=== PATIENT | male | born 1990 | race American Indian/Alaskan Native ===

== ENCOUNTER 2016-07-07 07:57 | Emergency (ER) | payer OTHER ==
[2016-07-07 08:01] VITALS: BP 132/77; TEMP 98.2
[2016-07-07 08:02] VITALS: BMI 27.1
[2016-07-07 08:41] VITALS: RESP 24; O2SAT 96
[2016-07-07 08:43] VITALS: PULSE 106
--- NOTE | 2016-07-07 09:05 | ED PDOC ---
HPI: General Adult Time Seen by Provider: 07/07/16 08:42 Chief Complaint (Nursing): Shortness Of Breath Chief Complaint (Provider): Shortness Of Breath History Per: Patient History/Exam Limitations: no limitations Onset/Duration Of Symptoms: Days (x2 days) Additional Complaint(s): Patient is a 26 y/o male with a past medical history of asthma who presents to the emergency department with a complaint of shortness of breath, cough, sputum (yellow/greenish) and body aches x2 days. Denies fever. No other complaints at this time. PMD: None Past Medical History Reviewed: Historical Data, Nursing Documentation, Vital Signs Vital Signs: Last Vital Signs Temp 98.2 F 07/07/16 08:01 Pulse 106 H 07/07/16 08:42 Resp 24 07/07/16 08:42 BP 132/77 07/07/16 08:01 Pulse Ox 96 07/10/16 16:42 - Medical History PMH: Anxiety, Asthma, Bipolar Disorder - Surgical History Surgical History: No Surg Hx - Family History Family History: States: No Known Family Hx - Social History Current smoker - smoking cessation education provided: Yes Alcohol: Social Drugs: Cannabis - Immunization History Hx Tetanus Toxoid Vaccination: No Hx Influenza Vaccination: No Hx Pneumococcal Vaccination: No - Home Medications Home Medications: Ambulatory Orders Medication Instructions Recorded Albuterol HFA [Ventolin HFA 90 1 puff IH Q4 #1 puff 05/26/16 mcg/actuation (8 g)] Benzonatate [Tessalon Perles] 100 mg PO TID #30 sgl 05/26/16 Prednisone 50 mg PO DAILY #5 tablet 05/26/16 Seroquel 05/26/16 Albuterol HFA [Ventolin HFA 90 2 puff IH Q4H #1 puff 07/07/16 mcg/actuation (8 g)] Azithromycin [Zithromax] 250 mg PO DAILY #6 tab 07/07/16 predniSONE [predniSONE Tab] 10 mg PO TID #15 tab 07/07/16 - Allergies Allergies/Adverse Reactions: Allergies Allergy/AdvReac Type Severity Reaction Status Date / Time No Known Allergies Allergy Unverified 05/26/16 02:55 Review of Systems ROS Statement: Except As Marked, All Systems Reviewed And Found Negative Constitutional: Positive for: Other (Body aches). Negative for: Fever Respiratory: Positive for: Cough, Shortness of Breath, Sputum (yellow/greenish) Physical Exam - Reviewed Nursing Documentation Reviewed: Yes Vital Signs Reviewed: Yes - Physical Exam Appears: Positive for: Well, Non-toxic, No Acute Distress Head Exam: Positive for: ATRAUMATIC, NORMOCEPHALIC Skin: Positive for: Normal Color, Warm, Dry. Negative for: Rash Eye Exam: Positive for: Normal appearance ENT: Positive for: Normal ENT Inspection. Negative for: Pharyngeal Erythema Neck: Positive for: Normal Cardiovascular/Chest: Positive for: Regular Rate, Rhythm. Negative for: Murmur Respiratory: Positive for: Wheezing (Expiratory wheezing bilaterally). Negative for: Normal Breath Sounds, Accessory Muscle Use, Respiratory Distress Gastrointestinal/Abdominal: Positive for: Normal Exam Back: Positive for: Normal Inspection Extremity: Positive for: Normal ROM Neurologic/Psych: Positive for: Alert, Oriented. Negative for: Motor/Sensory Deficits - Laboratory Results Result Diagrams: 07/07/16 08:55 07/07/16 08:55 - ECG O2 Sat by Pulse Oximetry: 96 (RA) Pulse Ox Interpretation: Normal Medical Decision Making Medical Decision Making: Time: 8:42 Initial impression: Bronchitis; asthma exacerbation Initial plan: --COMP Metabolic Panel --CBC w/ differential --Chest Two Views (PA/LAT) (RAD) --Blood Culture Stat --IV Insertion --Peak Flow BID --Influenza A B Stat --Revaluation Scribe Attestation: Documented by Sofya Huizar, acting as a scribe for Jose Cuevas MD. Provider Scribe Attestation: All medical record entries made by the Scribe were at my direction and personally dictated by me. I have reviewed the chart and agree that the record accurately reflects my personal performance of the history, physical exam, medical decision making, and the department course for this patient. I have also personally directed, reviewed, and agree with the discharge instructions and disposition. Disposition - Clinical Impression Clinical Impression: Bronchitis - Disposition Referrals: [facility] [Outside] Provider TBD, [Primary Care Provider] - Disposition Time: 11:15 Condition: STABLE Prescriptions: Albuterol HFA [Ventolin HFA 90 mcg/actuation (8 g)] 2 puff IH Q4H #1 puff Azithromycin [Zithromax] 250 mg PO DAILY #6 tab predniSONE [predniSONE Tab] 10 mg PO TID #15 tab Instructions: Acute Bronchitis (ED) Physician Patient Turnover - . Patient Signed Over To: Ayo Carlton Handoff Comments: 10:00 AM - Pt handed off to Dr. Carlton. If wheezing improves after nebs and if pt is feeling better, then d/c home.
[2016-07-07] MEDS ORDERED: Albuterol-Ipratrop 3 mg / 0.5 (3 ml) UD INH STA ×2 (09:14→09:23)
[2016-07-07] MEDS ORDERED: Albuterol-Ipratrop 3 mg / 0.5 (3 ml) UD ONE (09:38)
[2016-07-07 09:58] LABS: BASO % 0.3 % (0.0-2.0); EOS # 0.2 K/uL (0.0-0.7); EOS % 1.4 % (0.0-4.0); HEMATOCRIT 43.1 % (35.0-51.0); LYMPH # 1.2 K/uL (1.0-4.3); LYMPH % 10.6 % (20.0-40.0); MEAN CELL VOLUME 91.2 fl (80.0-94.0); MEAN CORPUSCULAR HGB CONC 32.9 g/dL (33.0-37.0); MONO # 1.2 K/uL (0.0-0.8); MONO % 10.8 % (0.0-10.0); NEUT # 8.9 K/uL (1.8-7.0); NEUT % 76.9 % (50.0-75.0); RED CELL DISTRIBUTION WIDTH 13.7 % (11.5-14.5); WHITE BLOOD COUNT 11.5 K/uL (4.8-10.8)
--- NOTE | 2016-07-07 10:01 | ED PDOC ---
- Laboratory Results Result Diagrams: 07/07/16 08:55 07/07/16 08:55 - ECG O2 Sat by Pulse Oximetry: 96 (RA) Pulse Ox Interpretation: Normal Medical Decision Making Medical Decision Making: Time: 10:00 --Patient pending Chest X-ray, reassessment, and deposition. Disposition - Clinical Impression Clinical Impression: Bronchitis - POA Present On Arrival: None - Disposition Referrals: Provider TBD, [Primary Care Provider] - [facility] [Outside] Disposition: Routine/Home Disposition Time: 10:48 Condition: FAIR Prescriptions: Albuterol HFA [Ventolin HFA 90 mcg/actuation (8 g)] 2 puff IH Q4H #1 puff Azithromycin [Zithromax] 250 mg PO DAILY #6 tab predniSONE [predniSONE Tab] 10 mg PO TID #15 tab Instructions: Acute Bronchitis (ED)
[2016-07-07 10:06] LABS: ALB/GLOB RATIO 1.2 (1.0-2.1); ALKALINE PHOSPHATASE 57 U/L (38-126); ALT/SGPT 66 U/L (21-72); AST/SGOT 53 U/L (17-59); BILIRUBIN,TOTAL 0.8 mg/dl (0.2-1.3); BLOOD UREA NITROGEN 13 mg/dl (9-20); CALCIUM 8.8 mg/dL (8.4-10.2); CARBON DIOXIDE 26 mmol/L (22-30); CHLORIDE 102 mmol/L (98-107); GFR AFRICAN-AMERICAN > 60; GLUCOSE,RANDOM 87 mg/dL (75-110); POTASSIUM 4.1 MMOL/L (3.6-5.0); SODIUM 143 mmol/l (132-148); TOTAL PROTEIN 7.5 G/DL (6.3-8.2)
--- NOTE | 2016-07-07 10:37 | RAD ---
HISTORY: Cough and shortness of breath COMPARISON: No prior. TECHNIQUE: Chest PA and lateral FINDINGS: LUNGS: The lungs are well inflated. There is linear atelectasis/ scarring in the lungs. There is no focal consolidation. PLEURA: No significant pleural effusion identified. No pneumothorax apparent. CARDIOVASCULAR: Normal. OSSEOUS STRUCTURES: No significant abnormalities. VISUALIZED UPPER ABDOMEN: Normal. OTHER FINDINGS: None. IMPRESSION: No active pulmonary disease.
== END 2016-07-07 11:20 | disposition home or self-care (01) ==
LOC: H.ER 07:57 → SUPCPDRO 07:57 → H.ER 11:20
DX: J40 Bronchitis, not specified as acute or chronic (principal); F17.200 Nicotine dependence, unspecified, uncomplicated; F31.9 Bipolar disorder, unspecified; F41.9 Anxiety disorder, unspecified; R06.02 Shortness of breath; R05 Cough

== ENCOUNTER 2016-07-13 19:38 | Emergency (ER) | payer OTHER ==
[2016-07-13 19:38] VITALS: BMI 27.1
[2016-07-13] MEDS ORDERED: Albuterol-Ipratrop 3 mg / 0.5 (3 ml) UD IH STA (20:19)
[2016-07-13] MEDS ORDERED: Sodium Chloride 0.9% 1,000 ML IV STA ×2 (20:20→22:40)
--- NOTE | 2016-07-13 20:23 | ED PDOC ---
HPI: CCC, URI, Sore Throat Time Seen by Provider: 07/13/16 20:08 Chief Complaint (Nursing): Flu-like Symptoms Chief Complaint (Provider): fever History Per: Patient History/Exam Limitations: no limitations Onset/Duration Of Symptoms: Days (1 week) Current Symptoms Are (Timing): Still Present Location Of Pain: Diffuse Myalgias Associated Symptoms: Fever, Chills, Cough, Sputum, Myalgias, Nasal Congestion Additional History Per: Patient Additional Complaint(s): 26 y/o male history of asthma presents with persistent fever x 1 week. Associated nasal congestion/bleeding, productive cough, shortness of breath, and bodyaches. Patient seen here at onset of symptoms and prescribed Zpak, Albuterol, Prednisone with little improvement; he states he was then seen at a different ED and prescribed Augmentin and cough syrup without improvement of symptoms. Patient followed up with his PMD 3 days ago and was told it was a virus and to follow up next week. Denies headache, neck pain, abdominal pain, recent travel, sick contacts. Past Medical History Reviewed: Historical Data, Nursing Documentation, Vital Signs Vital Signs: Last Vital Signs Temp 99.0 F 07/13/16 22:33 Pulse 92 H 07/13/16 22:33 Resp 20 07/13/16 22:33 BP 142/79 07/13/16 22:33 Pulse Ox 100 07/14/16 00:08 - Medical History PMH: Anxiety, Asthma, Bipolar Disorder - Family History Family History: States: Unknown Family Hx - Social History Current smoker - smoking cessation education provided: Yes - Immunization History Hx Tetanus Toxoid Vaccination: No Hx Influenza Vaccination: No Hx Pneumococcal Vaccination: No - Home Medications Home Medications: Ambulatory Orders Medication Instructions Recorded Albuterol HFA [Ventolin HFA 90 1 puff IH Q4 #1 puff 05/26/16 mcg/actuation (8 g)] Benzonatate [Tessalon Perles] 100 mg PO TID #30 sgl 05/26/16 Prednisone 50 mg PO DAILY #5 tablet 05/26/16 Seroquel 05/26/16 Albuterol HFA [Ventolin HFA 90 2 puff IH Q4H #1 puff 07/07/16 mcg/actuation (8 g)] Azithromycin [Zithromax] 250 mg PO DAILY #6 tab 07/07/16 predniSONE [predniSONE Tab] 10 mg PO TID #15 tab 07/07/16 Albuterol HFA [Ventolin HFA 90 1 puff IH Q4 PRN #1 inh 07/13/16 mcg/actuation (8 g)] Ibuprofen [Motrin Tab] 1 tab PO Q6 PRN #20 tab 07/13/16 predniSONE [Prednisone] 60 mg PO ONCE #6 tab 07/13/16 - Allergies Allergies/Adverse Reactions: Allergies Allergy/AdvReac Type Severity Reaction Status Date / Time No Known Allergies Allergy Verified 07/13/16 19:41 Review of Systems ROS Statement: Except As Marked, All Systems Reviewed And Found Negative Constitutional: Positive for: Fever, Chills ENT: Positive for: Nose Discharge, Nose Congestion Respiratory: Positive for: Cough, Sputum Physical Exam - Reviewed Nursing Documentation Reviewed: Yes Vital Signs Reviewed: Yes - Physical Exam Appears: Positive for: Well, Non-toxic, No Acute Distress Head Exam: Positive for: ATRAUMATIC, NORMAL INSPECTION, NORMOCEPHALIC Skin: Positive for: Normal Color Eye Exam: Positive for: Normal appearance ENT: Positive for: Normal ENT Inspection Cardiovascular/Chest: Positive for: Regular Rate, Rhythm Respiratory: Positive for: Normal Breath Sounds Gastrointestinal/Abdominal: Positive for: Normal Exam Back: Positive for: Normal Inspection Extremity: Positive for: Normal ROM Neurologic/Psych: Positive for: Alert, Oriented - Laboratory Results Result Diagrams: 07/13/16 21:30 07/13/16 21:30 - ECG O2 Sat by Pulse Oximetry: 100 Pulse Ox Interpretation: Normal - Radiology X-Ray: Viewed By Me X-Ray Interpretation: No Acute Disease - Progress ED Course And Treament: labs, flu, strep, chest xray, IV fluids, IV solumedrol, PO ibuprofen On re-eval, patient states he is feeling better. Patient educated on findings, discharged with rx Albuterol HFA, Prednisone, Ibuprofen. Advised Afrin OTC for nasal congestion. Fluids. Rest. Return to ED for worsening/concerning symptoms. Disposition - Clinical Impression Clinical Impression: Viral illness - Patient ED Disposition Is Patient to be Admitted: No Counseled Patient/Family Regarding: Studies Performed, Diagnosis, Need For Followup, Rx Given - Disposition Disposition: Routine/Home Disposition Time: 00:04 Condition: IMPROVED Additional Instructions: Follow up with primary doctor in 2-3 days. Drink plenty of fluids, rest. Take medications as directed. Return to ED for worsening/concerning symptoms. Prescriptions: Ibuprofen [Motrin Tab] 1 tab PO Q6 PRN #20 tab PRN Reason: Fever >100.4 F Albuterol HFA [Ventolin HFA 90 mcg/actuation (8 g)] 1 puff IH Q4 PRN #1 inh PRN Reason: Wheezing predniSONE [Prednisone] 60 mg PO ONCE #6 tab Instructions: Viral Syndrome (ED)
[2016-07-13] MEDS ORDERED: Albuterol-Ipratrop 3 mg / 0.5 (3 ml) UD ONE (20:32)
[2016-07-13 21:37] LABS: BASO % 0.4 % (0.0-2.0); HEMATOCRIT 39.6 % (35.0-51.0); MEAN CELL VOLUME 90.1 fl (80.0-94.0); MEAN CORPUSCULAR HEMOGLOBIN 30.3 pg (27.0-31.0); MEAN CORPUSCULAR HGB CONC 33.6 g/dL (33.0-37.0); MEAN PLATELET VOLUME 7.7 fl (7.2-11.7); MONO # 1.9 K/uL (0.0-0.8); MONO % 19.8 % (0.0-10.0); NEUT # 5.7 K/uL (1.8-7.0); NEUT % 58.8 % (50.0-75.0); NRBC % 0.1 % (0.0-0.0); RED CELL DISTRIBUTION WIDTH 13.6 % (11.5-14.5); WHITE BLOOD COUNT 9.7 K/uL (4.8-10.8)
[2016-07-13 21:49] LABS: ALB/GLOB RATIO 1.1 (1.0-2.1); ALKALINE PHOSPHATASE 46 U/L (38-126); ALT/SGPT 45 U/L (21-72); AST/SGOT 83 U/L (17-59); BILIRUBIN,TOTAL 0.6 mg/dl (0.2-1.3); BLOOD UREA NITROGEN 16 mg/dl (9-20); CALCIUM 8.8 mg/dL (8.4-10.2); CARBON DIOXIDE 22 mmol/L (22-30); CHLORIDE 99 mmol/L (98-107); GFR AFRICAN-AMERICAN > 60; GLUCOSE,RANDOM 106 mg/dL (75-110); POTASSIUM 4.4 MMOL/L (3.6-5.0); SODIUM 135 mmol/l (132-148); TOTAL PROTEIN 7.5 G/DL (6.3-8.2)
[2016-07-13 22:34] VITALS: BP 142/79; PULSE 92; RESP 20; TEMP 99
[2016-07-13 22:52] VITALS: O2SAT 100
--- NOTE | 2016-07-14 09:15 | RAD ---
HISTORY: cough, fever COMPARISON: Comparison chest 07/07/2016 TECHNIQUE: Chest PA and lateral FINDINGS: LUNGS: No active pulmonary disease. PLEURA: No significant pleural effusion identified. No pneumothorax apparent. CARDIOVASCULAR: Normal. OSSEOUS STRUCTURES: No significant abnormalities. VISUALIZED UPPER ABDOMEN: Normal. OTHER FINDINGS: None. IMPRESSION: No active disease.
--- NOTE | 2016-07-14 18:07 | CARD ---
APPROVED REPORT EKG Measurement Heart [id number] <Conclusion> Sinus tachycardia Rightward axis Borderline ECG
== END 2016-07-14 00:41 | disposition home or self-care (01) ==
LOC: H.ER 19:38
DX: B34.9 Viral infection, unspecified (principal); R05 Cough; R50.9 Fever, unspecified